=== PATIENT | female | born 2000 | race Caucasian/White ===

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

== ENCOUNTER 2021-01-02 16:40 | Emergency (ER) | payer BC ==
[~2021-01-02] VITALS: Ht 165.1 cm; Wt 56.7 kg
[2021-01-02 16:43] VITALS: BP_SYST 163
--- NOTE | 2021-01-02 16:55 | NUR ---
Patient to ER bed 03 to gown for evaluation. Side rails up.
--- NOTE | 2021-01-02 17:00 | NUR ---
PT BIB MOTHER C/O SI WITH PLAN TO OD ON PILLS. STATES THAT TODAY SHE TOOK AN EXTRA DOSE OF HER ZOLOFT (100MG) AT 1640 IN AN ATTEMPT TO OD. SHE ALSO TOOK HER REGULAR DOSE THIS AM AROUND 0900. PT PRESENTS TEARFUL STATING THAT HER AND HER PARTNER RECENTLY BROKE UP MAKING HER FEEL ABANDONED AND TRIGGERED SI. STATES SHE ATTEMPTED TO OD ON 3 EXTRA STRENGTH TYLENOL LAST MONTH. PT IS COOPERATIVE AND SEEKING HELP. AAOX4, V/S STABLE, AMBULATES WITH STEADY GAIT
--- NOTE | 2021-01-02 17:15 | NUR ---
Called Poison Control at [phone] and spoke with BOBBI. Per recommendations: 2 EKG'S ONE NOW AND ONE IN 4HRS, UDS, SEIZURE PRECAUTIONS, TYLENOL, SALICYTE LEVELS. Dr. BANERJEE notified. Will continue to monitor patient.
--- NOTE | 2021-01-02 18:15 | NUR ---
PT RESTING IN BED, NO DISTRESS
--- NOTE | 2021-01-02 18:33 | NUR ---
ER DR. BANERJEE AT THE BEDSIDE EXAMINING PT
--- NOTE | 2021-01-02 19:02 | NUR ---
LAB AT THE BEDSIDE
--- NOTE | 2021-01-02 19:03 | NUR ---
REPORT GIVEN TO ESTEPHANIE HUYNH FOR CONTINUING CARE
[2021-01-02 19:15] LABS: BILIRUBIN,URINE NEGATIVE (NEGATIVE); BLOOD, URINE NEGATIVE (NEGATIVE); CLARITY/URINE CLEAR (CLEAR); COLOR,URINE YELLOW (YELLOW); GLUCOSE,URINE NEGATIVE (NEGATIVE); KETONES,URINE NEGATIVE (NEGATIVE); LEUKOCYTE ESTERASE ,URINE TRACE (NEGATIVE); NITRITE, URINE NEGATIVE (NEGATIVE); PROTEIN URINE NEGATIVE (NEGATIVE); UROBILINOGEN,URINE 0.2 (0.2-1.0)
[2021-01-02 19:22] LABS: BASOPHILS % (AUTO) 0.3 % (0.0-2.0); EOSINOPHILS # (AUTO) 0.1 K/uL (0.0-0.4); EOSINOPHILS % (AUTO) 0.5 % (0.0-4.0); LYMPHOCYTES # (AUTO) 1.9 K/uL (1.0-5.5); LYMPHOCYTES % (AUTO) 17.8 % (20.5-51.5); MEAN CORPUSCULAR HEMOGLOBIN 31 pg (27-31); MEAN CORPUSCULAR HGB CONC 35 % (32-36); MEAN CORPUSCULAR VOLUME 88 fL (79.0-98.0); MONOCYTES # (AUTO) 0.5 K/uL (0.0-1.0); MONOCYTES % (AUTO) 4.9 % (1.7-9.3); NEUTROPHILS # (AUTO) 8.2 K/uL (1.8-7.7); NEUTROPHILS % (AUTO) 76.5 % (40.0-70.0); PLATELET COUNT (AUTO) 167 K/uL (130-430); RED BLOOD CELL COUNT(AUTO) 4.54 MIL/uL (4.2-6.2); RED CELL DISTRIBUTION WIDTH 12.7 % (9.0-15.0); WHITE BLOOD COUNT (AUTO) 10.7 K/uL (4.5-11.0)
[2021-01-02 19:25] LABS: BACTERIA,URINE FEW /HPF (None Seen); RBC,URINE 0-3 /HPF (0-3); WBC,URINE 0-3 /HPF (0-3)
[2021-01-02 19:33] LABS: ANION GAP 8 (5-15); CALCIUM 9.2 mg/dL (8.4-11.0); CHLORIDE 105 mmol/L (98-107); CREATININE 0.68 mg/dL (0.55-1.30); GLUCOSE 87 mg/dL (70-99); POTASSIUM 3.7 mmol/L (3.5-5.1); SODIUM SERUM 139 mmol/L (136-145); UREA NITROGEN, BLOOD 12 mg/dL (8-21)
[2021-01-02 19:35] LABS: BARBITURATE, URINE NEGATIVE (NEG <=200); BENZODIAZEPINE, URINE NEGATIVE (NEG <=150); CANNABINOID, URINE NEGATIVE (NEG <=50); COCAINE, URINE NEGATIVE (NEG <=150); METHAMPHETAMINES SCREEN,URINE NEGATIVE (NEG <=500); OPIATE, URINE NEGATIVE (NEG <=100); PHENCYCLIDINE SCREEN,URINE NEGATIVE (NEG <=25); UR TRICYCLIC ANTIDEPRESSANTS NEGATIVE (NEG <=300); URINE AMPHETAMINE NEGATIVE (NEG <=500); URINE METHADONE NEGATIVE (NEG <=200); URINE OXYCODONE SCREEN NEGATIVE (NEG <=100); URINE PROPOXYPHENE SCREEN NEGATIVE (NEG <=300)
--- NOTE | 2021-01-02 19:35 | NUR ---
Pt remains in stable condition, with Lab bedside for blood draw, well tolerated
[2021-01-02 19:36] LABS: GFR AFRICAN AMERICAN 143 mL/min (>90)
[2021-01-02 19:38] LABS: ALANINE AMINOTRANSFERASE 24 U/L (12-78); ALBUMIN 3.8 g/dL (3.4-4.8); ASPARTATE AMINOTRANSFERASE 19 U/L (10-37); TOTAL BILIRUBIN 0.2 mg/dL (0.0-1.0)
[2021-01-02 19:39] LABS: ACETAMINOPHEN < 1 ug/mL (1-30); ALCOHOL, BLOOD < 3 mg/dL (<10)
[2021-01-02 19:41] LABS: CHOLESTEROL 193 mg/dL (<200); HDL CHOLESTEROL 61 mg/dL (>55); LDL CHOLESTEROL 124 mg/dL (<100); TRIGLYCERIDES 76 mg/dL (30-150)
--- NOTE | 2021-01-02 20:24 | NUR ---
Pt's family ( step father Faraz ) called and received update
--- NOTE | 2021-01-02 21:52 | NUR ---
Shun called from Poison Control, fully update, and ready to close out her case on their end
--- NOTE | 2021-01-02 23:01 | NUR ---
VSS no s/s of acute distress Resting on gurney rails up
--- NOTE | 2021-01-03 00:21 | NUR ---
Pt remains in stable condition, pt's family updated by phone
--- NOTE | 2021-01-03 01:22 | NUR ---
Pt resting in comfort on gurney rails up
--- NOTE | 2021-01-03 02:22 | NUR ---
Pt's family aware, pt is awaiting psychiatry eval in am
--- NOTE | 2021-01-03 03:25 | NUR ---
Pt walked to and from restroom, well tolerated
--- NOTE | 2021-01-03 07:05 | NUR ---
Assumed care of patient, report received from ESTEPHANIE Sanabria. Pt jordy resting in bed, no acute distress noted. Awaiting psych consult
--- NOTE | 2021-01-03 07:16 | NUR ---
Breakfast tray ordered for patient.
--- NOTE | 2021-01-03 07:50 | NUR ---
Dr. Murillo at bedside for psych eval. Pt placed on 5150 hold for DTS, will be transfered to [facility] once bed is available.
--- NOTE | 2021-01-03 12:00 | NUR ---
Lunch tray provided to patient.
--- NOTE | 2021-01-03 15:30 | NUR ---
Talked to Berta at [facility], pt has been accepted under Dr. Crawford, transportation to be set up by [facility].
--- NOTE | 2021-01-03 16:30 | NUR ---
Dinner tray requested for patient.
--- NOTE | 2021-01-03 19:09 | NUR ---
Care of patient endorsed to ESTEPHANIE Smith. Pt currently resting in bed, no acute distress noted.
[2021-01-03 19:10] VITALS: BP_SYST 124
--- NOTE | 2021-01-03 19:10 | NUR ---
Patient transfer to [facility] via BLS/EMS.
== END 2021-01-03 19:10 ==
LOC: SED 16:40
DX: F32.9 Major depressive disorder, single episode, unspecified (principal); R45.851 Suicidal ideations; F41.9 Anxiety disorder, unspecified; Z88.0 Allergy status to penicillin; I49.9 Cardiac arrhythmia, unspecified; Z20.822 Contact with and (suspected) exposure to COVID-19
CPT/HCPCS: 36415; 80053; 80061; 80307; 81000; 83036; 85025; 87086; 87426; 93005; 99285; G0480; G0481; G0482

== ENCOUNTER 2021-12-13 16:03 | Emergency (ER) | payer BC ==
[~2021-12-13] VITALS: Ht 167.6 cm; Wt 68.0 kg
[2021-12-13 16:03] VITALS: BP_SYST 140
--- NOTE | 2021-12-13 16:03 | NUR ---
Placed in room 2 . Placed on start up specialist, blood pressure machine and pulse oximeter. To gown for exam. Side rails up. Report given to ESTEPHANIE DURAN.
--- NOTE | 2021-12-13 16:04 | NUR ---
RECEIVED PT FROM ESTEPHANIE JIMENEZ. PT HAS C/O SOB, HIVES ON LEFT SIDE OF NECK, ITCHINESS. PT WAS SCRATCHED BY A CAT AND IS ALLERGIC. RESP E/U. NO R/A. O2 SAT 100%. HR 110. NORMAL S1S2 NOTED. PT STATES THROAT FEELS SCRATCHY. SKIN CDI, NO EDEMA. PERIPHERAL PULSES NORMAL, CAP REFILL <3SECS. DENIES PAIN. SIDE RAILS UP X2.
[2021-12-13] MEDS ORDERED: DIPHENHYDRAMINE INJ 50 MG/ML VIAL IVP ONE (16:15)
[2021-12-13] MEDS ORDERED: FAMOTIDINE PF 20 MG/2 ML VIAL IVP ONE (16:15)
[2021-12-13] MEDS ORDERED: DEXAMETHASONE SOD PHOSPHATE 10 MG/ML VIAL IVP ONE (16:15)
[2021-12-13] MEDS ORDERED: EPINEPHrine HCL 1 MG/ML VIAL IM ONE (16:15)
--- NOTE | 2021-12-13 16:16 | NUR ---
DR. SOTO AT BEDSIDE TO ASSESS PT.
[2021-12-13] MEDS ORDERED: EPINEPHRINE HCL/PF 1 MG/ML AMP ONE (16:45)
--- NOTE | 2021-12-13 16:47 | NUR ---
IV CATH 22 G STARTED TO RFA. SITE WNL. SCHEDULED MEDS GIVEN AND TOLERATED WELL. 02 SAT 100%. NO DISTRESS NOTED. DENIES PAIN.
[2021-12-13] MEDS ORDERED: EPIN0.3P3 IM (17:02)
[2021-12-13 17:32] VITALS: BP_SYST 140
--- NOTE | 2021-12-13 17:34 | NUR ---
Patient given written and verbal discharge instructions and verbalizes understanding. ER MD discussed with patient the results and treatment provided. Patient in stable condition. ID arm band removed. IV catheter removed intact and dressing applied, no active bleeding. Rx of EPINEPHRINE given. Patient educated on pain management and to follow up with PMD. Pain Scale 0/10. Opportunity for questions provided and answered. Medication side effect fact sheet provided.
== END 2021-12-13 17:32 | disposition home or self-care (01) ==
LOC: SED 16:03
DX: T78.2XXA Anaphylactic shock, unspecified, initial encounter (principal); R06.02 Shortness of breath; R19.7 Diarrhea, unspecified; Z79.899 Other long term (current) drug therapy
CPT/HCPCS: 99291; 96374; 96375; 96372; J1100; J1200; J0171; J3490

== ENCOUNTER 2022-03-22 03:23 | Emergency (ER) | payer BC ==
[~2022-03-22] VITALS: Ht 167.6 cm; Wt 75.3 kg
[~2022-03-22 03:23] MED LIST: EPIN0.3P3 IM
[2022-03-22 03:35] VITALS: BP_SYST 114
--- NOTE | 2022-03-22 03:35 | NUR ---
Patient to ER bed 8 to gown for evaluation. Side rails up.
--- NOTE | 2022-03-22 03:47 | NUR ---
Urine HCG done, results negative.
--- NOTE | 2022-03-22 03:51 | NUR ---
ER at bedside examining patient.
[2022-03-22] MEDS ORDERED: MORPHINE 4 MG INJ. 4 MG/ML VIAL IM ONE (04:00)
[2022-03-22] MEDS ORDERED: IBUP-1971 PO (04:06)
[2022-03-22] MEDS ORDERED: HYDR-3917 PO (04:06)
[2022-03-22] MEDS ORDERED: ONDA8TAB60 PO (04:07)
--- NOTE | 2022-03-22 04:16 | NUR ---
Patient given written and verbal discharge instructions and verbalizes understanding. ER MD discussed with patient the results and treatment provided. Patient in stable condition. ID arm band removed. Rx of [place],Ibuprofen,Zofran given. Patient educated on pain management and to follow up with PMD. Pain Scale 3/10. Opportunity for questions provided and answered. Medication side effect fact sheet provided.
[2022-03-22 04:17] VITALS: BP_SYST 116
[2022-03-23] MEDS ORDERED: LIDO1ADH77 TP (00:57)
== END 2022-03-22 04:17 | disposition home or self-care (01) ==
LOC: SED 03:23
DX: M54.50 Low back pain, unspecified (principal); R50.9 Fever, unspecified; R11.0 Nausea; Z88.0 Allergy status to penicillin; Z79.899 Other long term (current) drug therapy
CPT/HCPCS: 99283; 81002; 81025; 96372; J2270

== ENCOUNTER 2022-03-22 19:24 | Emergency (ER) | payer BC ==
[~2022-03-22] VITALS: Ht 167.6 cm; Wt 75.3 kg
[~2022-03-22 19:24] MED LIST changes: +HYDR-3917 PO; +IBUP-1971 PO; +ONDA8TAB60 PO
[2022-03-22 20:30] VITALS: BP_SYST 141
--- NOTE | 2022-03-22 21:04 | NUR ---
Patient triaged and placed in waiting room. VSS and patient appears in no acute distress at this time. Accompanied by self, awaiting available bed, and MD notified of need for MSE.
--- NOTE | 2022-03-22 21:05 | NUR ---
Pt brought by mother,A&Ox4, pt presents to ER with SOB and chest wall pain, pt was here earlier for back pain/spasms, skin pink and warm, cap refill <3.
[2022-03-22 21:40] LABS: BASOPHILS % (AUTO) 0.2 % (0.0-2.0); EOSINOPHILS # (AUTO) 0.1 K/uL (0.0-0.4); EOSINOPHILS % (AUTO) 0.6 % (0.0-4.0); HEMATOCRIT 38.7 % (36-48); LYMPHOCYTES % (AUTO) 10.3 % (20.5-51.5); MEAN CORPUSCULAR HEMOGLOBIN 28 pg (27-31); MEAN CORPUSCULAR HGB CONC 34 % (32-36); MEAN CORPUSCULAR VOLUME 84 fL (79.0-98.0); MONOCYTES # (AUTO) 0.7 K/uL (0.0-1.0); MONOCYTES % (AUTO) 7.7 % (1.7-9.3); NEUTROPHILS # (AUTO) 7.5 K/uL (1.8-7.7); NEUTROPHILS % (AUTO) 81.2 % (40.0-70.0); PLATELET COUNT (AUTO) 202 K/uL (130-430); RED CELL DISTRIBUTION WIDTH 12.5 % (9.0-15.0); WHITE BLOOD COUNT (AUTO) 9.2 K/uL (4.8-10.8)
[2022-03-22 21:55] LABS: CALCIUM 9.2 mg/dL (8.4-11.0); CREATININE 0.61 mg/dL (0.55-1.30)
--- NOTE | 2022-03-22 23:31 | NUR ---
Patient to ER bed 7 to gown for evaluation. Side rails up. Report given to Ivonne HUMMEL(reg).
--- NOTE | 2022-03-22 23:50 | NUR ---
PATIENT RESTING IN BED WITH FAMILY AT BEDSIDE, NO S/S OF ANY DISTRESS NOTED, INFORMED OF PLAN OF CARE, PATIENT STATES THAT LAB HAS BEEN DONE. PLACED ON MONITOR AT THIS TIME, AWAITING MD EXAM.
--- NOTE | 2022-03-23 00:02 | NUR ---
ER at bedside examining patient.
[2022-03-23] MEDS ORDERED: LIDO1ADH77 TP (00:57)
[2022-03-23] MEDS ORDERED: KETOROLAC TROMETHAMINE 30 MG VIAL IM ONE (01:00)
--- NOTE | 2022-03-23 01:46 | NUR ---
Patient given written and verbal discharge instructions and verbalizes understanding. ER MD discussed with patient the results and treatment provided. Patient in stable condition. ID arm band removed. Rx of lidocaine patchgiven. Patient educated on pain management and to follow up with PMD. Pain Scale 3/10. Opportunity for questions provided and answered. Medication side effect fact sheet provided.
[2022-03-23 01:49] VITALS: BP_SYST 137
== END 2022-03-23 01:49 | disposition home or self-care (01) ==
LOC: SED 19:24
DX: M54.50 Low back pain, unspecified (principal); R07.9 Chest pain, unspecified; Z88.0 Allergy status to penicillin; Z79.899 Other long term (current) drug therapy
CPT/HCPCS: 99284; 71045; 80048; 85025; 85379; 36415; 96372; J1885

== ENCOUNTER 2022-07-03 12:06 | Emergency (ER) | payer BC ==
[~2022-07-03] VITALS: Ht 167.6 cm; Wt 82.1 kg
[~2022-07-03 12:06] MED LIST changes: +LIDO1ADH77 TP
[2022-07-03 12:10] VITALS: BP_SYST 124
--- NOTE | 2022-07-03 12:10 | NUR ---
Patient triaged and placed in waiting room. VSS and patient appears in no acute distress at this time. Accompanied by FRIEND, awaiting available bed, and MD notified of need for MSE.
--- NOTE | 2022-07-03 12:33 | NUR ---
PT STATES OFF AND ON PAIN TO DEEP INSIDE HER ABDOMEN FOR A FEW DAYS, NOW PAIN IS CONSTANT. STATES INSTANT DIARRHEA AFTER EATING AND PAIN IS WORSE THEN. PT STATES SHE IS NAUSEATED BUT HAS NOT VOMITED.
[2022-07-03 13:33] LABS: BASOPHILS % (AUTO) 0.3 % (0.0-2.0); EOSINOPHILS # (AUTO) 0.3 K/uL (0.0-0.4); EOSINOPHILS % (AUTO) 2.8 % (0.0-4.0); HEMATOCRIT 40.9 % (36-48); HEMOGLOBIN 13.8 g/dL (12.0-16.0); LYMPHOCYTES # (AUTO) 1.7 K/uL (1.0-5.5); LYMPHOCYTES % (AUTO) 17.2 % (20.5-51.5); MEAN CORPUSCULAR HEMOGLOBIN 28 pg (27-31); MEAN CORPUSCULAR HGB CONC 34 % (32-36); MEAN CORPUSCULAR VOLUME 84 fL (79.0-98.0); MONOCYTES # (AUTO) 0.6 K/uL (0.0-1.0); NEUTROPHILS # (AUTO) 7.3 K/uL (1.8-7.7); NEUTROPHILS % (AUTO) 73.7 % (40.0-70.0); PLATELET COUNT (AUTO) 249 K/uL (130-430); RED CELL DISTRIBUTION WIDTH 13.2 % (9.0-15.0); WHITE BLOOD COUNT (AUTO) 9.9 K/uL (4.8-10.8)
[2022-07-03 13:44] LABS: BILIRUBIN,URINE NEGATIVE (NEGATIVE); CLARITY/URINE CLEAR (CLEAR); COLOR,URINE YELLOW (YELLOW); GLUCOSE,URINE NEGATIVE (NEGATIVE); KETONES,URINE NEGATIVE (NEGATIVE); LEUKOCYTE ESTERASE ,URINE TRACE (NEGATIVE); NITRITE, URINE NEGATIVE (NEGATIVE); PH,URINE 6.5 (5.0-8.0); PROTEIN URINE NEGATIVE (NEGATIVE); UROBILINOGEN,URINE 0.2 (0.2-1.0)
[2022-07-03 13:45] LABS: BLOOD, URINE TRACE (NEGATIVE)
[2022-07-03 13:50] LABS: CALCIUM 9.5 mg/dL (8.4-11.0); CREATININE 0.76 mg/dL (0.55-1.30)
[2022-07-03 13:52] LABS: BACTERIA,URINE FEW /HPF (None Seen)
[2022-07-03 13:55] LABS: ALBUMIN 3.4 g/dL (3.4-4.8); TOTAL BILIRUBIN 0.2 mg/dL (0.0-1.0)
--- NOTE | 2022-07-03 15:57 | NUR ---
Patient to ER bed 03 to gown for evaluation. Side rails up.
[2022-07-03] MEDS ORDERED: ONDANSETRON HCL 4 MG/2 ML VIAL IVP ONE (16:00)
[2022-07-03] MEDS ORDERED: NACL 0.9% 1,000 ML IV ONE (16:00)
--- NOTE | 2022-07-03 16:00 | NUR ---
Pt brought by self,A&Ox4, pt presents to ER with abdominal pain and nausea,no N/V noted at this time, skin pink and warm, cap refill <3.
[2022-07-03] MEDS ORDERED: ONDA-8 TL (16:16)
[2022-07-03] MEDS ORDERED: DICY10CA13 PO (16:16)
[2022-07-03 18:34] VITALS: BP_SYST 124
--- NOTE | 2022-07-03 18:34 | NUR ---
Patient given written and verbal discharge instructions and verbalizes understanding. ER MD discussed with patient the results and treatment provided. Patient in stable condition. ID arm band removed. Rx of Dicyclomine,Zofran given. Patient educated on pain management and to follow up with PMD. Pain Scale 0/10. Opportunity for questions provided and answered. Medication side effect fact sheet provided.
== END 2022-07-03 18:34 | disposition home or self-care (01) ==
LOC: SED 12:06
DX: K52.9 Noninfective gastroenteritis and colitis, unspecified (principal); R10.30 Lower abdominal pain, unspecified; R35.0 Frequency of micturition; Z88.0 Allergy status to penicillin; Z88.8 Allergy status to other drugs, medicaments and biological substances; Z79.899 Other long term (current) drug therapy
CPT/HCPCS: 99285; 74176; 96374; 80053; 81000; 83690; 85025; 36415; 76376; 81025; J2405

== ENCOUNTER 2023-03-08 00:16 | Emergency (ER) | payer BC ==
[~2023-03-08] VITALS: Ht 165.1 cm; Wt 82.1 kg
[~2023-03-08 00:16] MED LIST changes: +DICY-14 PO; +ONDA-8 TL
[2023-03-08 00:25] VITALS: BP_SYST 136; PULSE 102; RESP 17; TEMP 98.2; O2SAT 97
[2023-03-08 01:09] LABS: BILIRUBIN,URINE NEGATIVE (NEGATIVE); BLOOD, URINE NEGATIVE (NEGATIVE); CLARITY/URINE CLEAR (CLEAR); COLOR,URINE YELLOW (YELLOW); GLUCOSE,URINE NEGATIVE (NEGATIVE); KETONES,URINE NEGATIVE (NEGATIVE); LEUKOCYTE ESTERASE ,URINE NEGATIVE (NEGATIVE); NITRITE, URINE NEGATIVE (NEGATIVE); PROTEIN URINE NEGATIVE (NEGATIVE); UROBILINOGEN,URINE 0.2 (0.2-1.0)
[2023-03-08 01:39] LABS: BASOPHILS # (AUTO) 0.1 K/uL (0.0-0.2); BASOPHILS % (AUTO) 0.6 % (0.0-2.0); EOSINOPHILS # (AUTO) 0.1 K/uL (0.0-0.4); HEMOGLOBIN 13.7 g/dL (12.0-16.0); LYMPHOCYTES # (AUTO) 2.7 K/uL (1.0-5.5); MONOCYTES # (AUTO) 0.5 K/uL (0.0-1.0); WHITE BLOOD COUNT (AUTO) 10.5 K/uL (4.8-10.8)
[2023-03-08 01:41] LABS: EOSINOPHILS % (AUTO) 0.8 % (0.0-4.0); HEMATOCRIT 40.4 % (36-48); LYMPHOCYTES % (AUTO) 25.4 % (20.5-51.5); MEAN CORPUSCULAR HEMOGLOBIN 28 pg (27-31); MEAN CORPUSCULAR HGB CONC 34 % (32-36); MEAN CORPUSCULAR VOLUME 83 fL (79.0-98.0); MONOCYTES % (AUTO) 4.5 % (1.7-9.3); NEUTROPHILS # (AUTO) 7.2 K/uL (1.8-7.7); NEUTROPHILS % (AUTO) 68.7 % (40.0-70.0); PLATELET COUNT (AUTO) 250 K/uL (130-430); RED BLOOD CELL COUNT(AUTO) 4.84 MIL/uL (4.2-6.2); RED CELL DISTRIBUTION WIDTH 12.8 % (9.0-15.0)
[2023-03-08 02:01] LABS: ALBUMIN 3.5 g/dL (3.4-4.8); CALCIUM 9.5 mg/dL (8.4-11.0); CREATININE 0.71 mg/dL (0.55-1.30); POTASSIUM 3.7 mmol/L (3.5-5.1); TOTAL BILIRUBIN 0.1 mg/dL (0.0-1.0); TOTAL PROTEIN, SERUM 8.4 g/dL (6.4-8.3)
[2023-03-08 03:18] VITALS: BP_SYST 132; PULSE 97; RESP 18; TEMP 98; O2SAT 97
== END 2023-03-08 03:18 | disposition home or self-care (01) ==
LOC: SED 00:16
DX: R10.30 Lower abdominal pain, unspecified (principal); F32.9 Major depressive disorder, single episode, unspecified; F41.9 Anxiety disorder, unspecified; Z88.0 Allergy status to penicillin; Z79.899 Other long term (current) drug therapy
CPT/HCPCS: 36415; 76376; 76856-TC; 80053; 81001; 81003; 83690; 85025; 87210-TC; 99284

== ENCOUNTER 2023-05-12 06:52 | Inpatient (IN) | payer BC ==
[~2023-05-12] VITALS: Ht 165.1 cm; Wt 79.8 kg
[2023-05-12 06:56] VITALS: BP_SYST 125; PULSE 85; RESP 18; TEMP 97.1; O2SAT 95
[2023-05-12 08:06] LABS: BILIRUBIN,URINE NEGATIVE (NEGATIVE); BLOOD, URINE NEGATIVE (NEGATIVE); CLARITY/URINE CLEAR (CLEAR); COLOR,URINE YELLOW (YELLOW); GLUCOSE,URINE NEGATIVE (NEGATIVE); KETONES,URINE NEGATIVE (NEGATIVE); LEUKOCYTE ESTERASE ,URINE NEGATIVE (NEGATIVE); NITRITE, URINE NEGATIVE (NEGATIVE); PROTEIN URINE NEGATIVE (NEGATIVE); UROBILINOGEN,URINE 0.2 (0.2-1.0)
[2023-05-12 08:31] LABS: BASOPHILS % (AUTO) 0.4 % (0.0-2.0); EOSINOPHILS # (AUTO) 0.1 K/uL (0.0-0.4); EOSINOPHILS % (AUTO) 0.9 % (0.0-4.0); HEMATOCRIT 42.8 % (36-48); HEMOGLOBIN 14.6 g/dL (12.0-16.0); LYMPHOCYTES # (AUTO) 3.1 K/uL (1.0-5.5); LYMPHOCYTES % (AUTO) 28.3 % (20.5-51.5); MEAN CORPUSCULAR HEMOGLOBIN 29 pg (27-31); MEAN CORPUSCULAR HGB CONC 34 % (32-36); MEAN CORPUSCULAR VOLUME 85 fL (79.0-98.0); MONOCYTES # (AUTO) 0.5 K/uL (0.0-1.0); MONOCYTES % (AUTO) 4.3 % (1.7-9.3); NEUTROPHILS # (AUTO) 7.1 K/uL (1.8-7.7); NEUTROPHILS % (AUTO) 66.1 % (40.0-70.0); PLATELET COUNT (AUTO) 221 K/uL (130-430); RED BLOOD CELL COUNT(AUTO) 5.01 MIL/uL (4.2-6.2); WHITE BLOOD COUNT (AUTO) 10.8 K/uL (4.8-10.8)
[2023-05-12] MEDS: LORazepam 2 MG/ML VIAL IVP ONE (08:32)
[2023-05-12] MEDS ORDERED: MORPHINE 2 MG/ML INJ. SYRINGE IVP PRN (09:00)
[2023-05-12] MEDS ORDERED: MUPIROCIN 2% TOPICAL OINTMENT 22 GM NS PRN (09:00)
[2023-05-12] MEDS ORDERED: ACETAMINOPHEN 325 MG TABLET PO PRN (09:00)
[2023-05-12] MEDS ORDERED: DOCUSATE SODIUM 100 MG CAPSULE PO PRN (09:00)
[2023-05-12] MEDS ORDERED: ONDANSETRON HCL 4 MG/2 ML VIAL IVP PRN (09:00)
[2023-05-12] MEDS ORDERED: POTASSIUM CHLORIDE 20 MEQ TABLET.ER PO PRN (09:00)
[2023-05-12] MEDS ORDERED: LORazepam 2 MG/ML VIAL IVP PRN (09:00)
[2023-05-12] MEDS ORDERED: MAGNESIUM SULFATE 50 ML IV PRN (09:00)
[2023-05-12 09:30] LABS: ANION GAP 16 (5-15); CALCIUM 10.1 mg/dL (8.4-11.0); CARBON DIOXIDE 22 mmol/L (23-29); CHLORIDE 104 mmol/L (98-107); CREATININE 0.71 mg/dL (0.55-1.30); GFR AFRICAN AMERICAN 132 mL/min (>90); GFR NON AFRICAN-AMERICAN 109 mL/min (>90); GLUCOSE 106 mg/dL (74-106); POTASSIUM 3.5 mmol/L (3.5-5.1); SODIUM SERUM 142 mmol/L (136-145)
[2023-05-12 09:31] LABS: ALANINE AMINOTRANSFERASE 37 U/L (12-78); ALBUMIN 3.7 g/dL (3.4-4.8); ASPARTATE AMINOTRANSFERASE 25 U/L (10-37); BILIRUBIN,DIRECT 0.1 mg/dL (0.0-0.3)
[2023-05-12 09:32] LABS: LIPASE 34 U/L (16-77)
[2023-05-12 09:44] LABS: TOTAL BILIRUBIN 0.3 mg/dL (0.0-1.0); UREA NITROGEN, BLOOD 10 mg/dL (8-21)
[2023-05-12 09:45] LABS: TOTAL PROTEIN, SERUM 9.1 g/dL (6.4-8.3)
[2023-05-12] MEDS: MORPHINE 2 MG/ML INJ. SYRINGE IVP PRN (11:29)
[2023-05-12 16:14] LABS: BARBITURATE, URINE NEGATIVE (NEG <=200); BENZODIAZEPINE, URINE NEGATIVE (NEG <=150); CANNABINOID, URINE NEGATIVE (NEG <=50); COCAINE, URINE NEGATIVE (NEG <=150); METHAMPHETAMINES SCREEN,URINE NEGATIVE (NEG <=500); OPIATE, URINE NEGATIVE (NEG <=100); PHENCYCLIDINE SCREEN,URINE NEGATIVE (NEG <=25); UR TRICYCLIC ANTIDEPRESSANTS NEGATIVE (NEG <=300); URINE AMPHETAMINE NEGATIVE (NEG <=500); URINE METHADONE NEGATIVE (NEG <=200); URINE OXYCODONE SCREEN NEGATIVE (NEG <=100)
[2023-05-12 16:30] VITALS: BP_SYST 125; PULSE 101; RESP 20; TEMP 98.4; O2SAT 99
[2023-05-12 20:00] VITALS: BP_SYST 120; PULSE 102; RESP 20; TEMP 98.4; O2SAT 98
[2023-05-12] MEDS: busPIRone HCL 5 MG TABLET PO SCH (21:33)
[2023-05-13] VITALS: BP_SYST 119; PULSE 80; RESP 18; TEMP 98; O2SAT 93
[2023-05-13 04:31] LABS: BASOPHILS % (AUTO) 0.4 % (0.0-2.0); EOSINOPHILS # (AUTO) 0.1 K/uL (0.0-0.4); EOSINOPHILS % (AUTO) 1.4 % (0.0-4.0); HEMATOCRIT 39.9 % (36-48); HEMOGLOBIN 13.5 g/dL (12.0-16.0); LYMPHOCYTES # (AUTO) 2.9 K/uL (1.0-5.5); LYMPHOCYTES % (AUTO) 33.1 % (20.5-51.5); MEAN CORPUSCULAR HEMOGLOBIN 29 pg (27-31); MEAN CORPUSCULAR HGB CONC 34 % (32-36); MEAN CORPUSCULAR VOLUME 85 fL (79.0-98.0); MONOCYTES # (AUTO) 0.5 K/uL (0.0-1.0); MONOCYTES % (AUTO) 5.8 % (1.7-9.3); NEUTROPHILS # (AUTO) 5.2 K/uL (1.8-7.7); NEUTROPHILS % (AUTO) 59.3 % (40.0-70.0); PLATELET COUNT (AUTO) 228 K/uL (130-430); RED BLOOD CELL COUNT(AUTO) 4.71 MIL/uL (4.2-6.2); RED CELL DISTRIBUTION WIDTH 13.4 % (9.0-15.0); WHITE BLOOD COUNT (AUTO) 8.8 K/uL (4.8-10.8)
[2023-05-13 04:38] LABS: ANION GAP 10 (5-15); CALCIUM 9.3 mg/dL (8.4-11.0); CARBON DIOXIDE 27 mmol/L (23-29); CHLORIDE 106 mmol/L (98-107); CREATININE 0.71 mg/dL (0.55-1.30); GFR AFRICAN AMERICAN 132 mL/min (>90); GLUCOSE 100 mg/dL (74-106); POTASSIUM 3.6 mmol/L (3.5-5.1); SODIUM SERUM 143 mmol/L (136-145); UREA NITROGEN, BLOOD 9 mg/dL (8-21)
[2023-05-13 04:51] LABS: GFR NON AFRICAN-AMERICAN 109 mL/min (>90)
[2023-05-13 08:10] VITALS: BP_SYST 112; PULSE 79; RESP 16; TEMP 96.4; O2SAT 98
[2023-05-13] MEDS ORDERED: BUSP5TAB3 PO (10:05)
[2023-05-13] MEDS ORDERED: METO25TA3 PO (10:05)
[2023-05-13] MEDS: METOPROLOL SUCCINATE 25 MG TAB.SR.24H (TOPROL XL) PO ONE (10:38)
[2023-05-13 12:40] VITALS: BP_SYST 106; PULSE 95; RESP 16; TEMP 98.2; O2SAT 96
[2023-05-13 13:48] VITALS: BP_SYST 108; PULSE 85; RESP 16; TEMP 97; O2SAT 98
[2023-05-14] MEDS ORDERED: METOPROLOL SUCCINATE 25 MG TAB.SR.24H (TOPROL XL) PO SCH (09:00)
== END 2023-05-13 19:39 | disposition home or self-care (01) | DRG 206 ==
LOC: SED 06:52 → STU 08:58
PROVIDERS: ADMIT Family Medicine; ATTEND Family Medicine
DX: M94.0 Chondrocostal junction syndrome [Tietze] (principal); F41.9 Anxiety disorder, unspecified; E78.5 Hyperlipidemia, unspecified; F32.A Depression, unspecified; E11.9 Type 2 diabetes mellitus without complications; Z88.0 Allergy status to penicillin; Z91.09 Other allergy status, other than to drugs and biological substances; Z79.899 Other long term (current) drug therapy
CPT/HCPCS: 36415; 71045; 80048; 80076; 80307; 81001; 81003; 83690; 83735; 84443; 84484; 85025; 85379; 85651; 93005; 93306; 96374; 99285; G0378; J2060; J2270

== ENCOUNTER 2023-07-07 22:08 | Emergency (ER) | payer BC ==
[~2023-07-07] VITALS: Ht 162.6 cm; Wt 78.5 kg
[~2023-07-07 22:08] MED LIST changes: +BUSP5TAB3 PO; -DICY-14 PO; -EPIN0.3P3 IM; -HYDR-3917 PO; -IBUP-1971 PO; -LIDO1ADH77 TP; +METO25TA3 PO; -ONDA-8 TL; -ONDA8TAB60 PO
[2023-07-07 22:18] VITALS: BP_SYST 125; PULSE 88; RESP 16; TEMP 98.1; O2SAT 98
[2023-07-07] MEDS: IBUPROFEN 600 MG TABLET PO ONE (23:08)
[2023-07-07] MEDS: ONDANSETRON 4 MG ODT TAB PO ONE (23:09)
[2023-07-07] MEDS ORDERED: NAPR-1172 PO (23:23)
[2023-07-07] MEDS ORDERED: ONDA-8 TL (23:23)
[2023-07-07 23:31] VITALS: RESP 16; TEMP 98.1
[2023-07-07 23:32] VITALS: BP_SYST 120; PULSE 70; O2SAT 98
== END 2023-07-07 23:34 | disposition home or self-care (01) ==
LOC: SED 22:08
DX: S06.0X0A Concussion without loss of consciousness, initial encounter (principal); F41.9 Anxiety disorder, unspecified; F32.9 Major depressive disorder, single episode, unspecified; E78.5 Hyperlipidemia, unspecified; Z90.49 Acquired absence of other specified parts of digestive tract; Z88.0 Allergy status to penicillin; Z91.09 Other allergy status, other than to drugs and biological substances; W22.8XXA Striking against or struck by other objects, initial encounter; Y93.89 Activity, other specified; Y92.89 Other specified places as the place of occurrence of the external cause; Y99.8 Other external cause status
CPT/HCPCS: 99284; 70450; Q0162

== ENCOUNTER 2023-07-28 09:08 | Emergency (ER) | payer BC ==
[~2023-07-28] VITALS: Ht 162.6 cm; Wt 79.4 kg
[2023-07-28 09:08] VITALS: BP_SYST 132; PULSE 75; RESP 18; TEMP 97.4; O2SAT 99
[~2023-07-28 09:08] MED LIST changes: +NAPR-1172 PO; +ONDA-8 TL
[2023-07-28] MEDS: EPINEPHRINE HCL/PF 1 MG/ML AMP IM ONE (09:33)
[2023-07-28] MEDS ORDERED: ALBMDI INH (10:09)
[2023-07-28] MEDS ORDERED: EPIN0.3P3 IM (10:09)
[2023-07-28 10:19] VITALS: BP_SYST 110; PULSE 79; RESP 20; TEMP 97.6; O2SAT 98
== END 2023-07-28 10:21 | disposition home or self-care (01) ==
LOC: SED 09:08
DX: L50.9 Urticaria, unspecified (principal); F41.9 Anxiety disorder, unspecified; F32.A Depression, unspecified; E78.5 Hyperlipidemia, unspecified; Z88.0 Allergy status to penicillin; Z91.09 Other allergy status, other than to drugs and biological substances
CPT/HCPCS: 99283; 96372; J0171